=== PATIENT | female | born 1970 | race Caucasian/White ===

== ENCOUNTER 2016-09-30 14:10 | Emergency (ER) | payer OTHER ==
--- NOTE | 2016-09-30 14:32 | ED ---
General Adult HPI - General Chief complaint: Extremity Injury, Lower Stated complaint: L leg problem Time Seen by Provider: 09/30/16 14:20 Source: patient, RN notes reviewed Mode of arrival: ambulatory Limitations: no limitations - History of Present Illness Initial comments: 46-year-old female presented to the ER with low back pain radiating to the left leg and experiencing "giving out of her leg". She states that in her past medical history she has had some disc issues with her back as well as an issue with an epidural when she had her last years ago. She states that this pain and radiation to the left leg has been going on for about 3 days. Does cause her to occasionally fall. She states that none of her falls have been traumatic and her last fall was yesterday when she was in the kitchen cooking. She denies any trauma to her head, any dizziness, any vertigo, any vision change, headache, nausea or vomiting, hitting her head. States that her pain radiates across her low back into her left buttocks and down her left thigh. She denies occasional numbness to the thigh area as well. She states that she is not currently in any pain but does have occasional pain and tenderness in those stated areas. She stated that she did not need any pain medication in the ER today. She currently does not have health insurance and subsequently has not seen a primary care doctor recently. She states that approximately 6 years ago she did have some disc issues with her back and did go through physical therapy at that time and is in minimal issues since then. She denies any knee or ankle pain or issues. - Related Data Home Medications Medication Instructions Recorded Confirmed Otc Allergy Medication 24hr 1 tab PO DAILY 09/30/16 09/30/16 Previous Rx's Medication Instructions Recorded Ibuprofen [Motrin] 800 mg PO Q8HR PRN #30 tab 09/30/16 methylPREDNISolone Dose Pack 4 mg PO DIRECTED #21 package 09/30/16 [Medrol Dose Pack] Allergies Allergy/AdvReac Type Severity Reaction Status Date / Time sumatriptan [From Imitrex] Allergy Anaphylaxis Verified 09/30/16 14:43 sumatriptan succinate Allergy Anaphylaxis Verified 09/30/16 14:43 [From Imitrex] aspirin AdvReac Nausea Verified 09/30/16 14:43 Review of Systems ROS Statement: Those systems with pertinent positive or pertinent negative responses have been documented in the HPI. ROS Other: All systems not noted in ROS Statement are negative. Past Medical History Additional Past Medical History / Comment(s): migraines History of Any Multi-Drug Resistant Organisms: None Reported Past Surgical History: Section Additional Past Surgical History / Comment(s): right elbow Past Psychological History: No Psychological Hx Reported Smoking Status: Current every day smoker Past Alcohol Use History: None Reported Past Drug Use History: None Reported General Exam Limitations: no limitations General appearance: alert, in no apparent distress, other Head exam: Present: atraumatic, normocephalic Eye exam: Present: normal appearance, PERRL, EOMI Pupils: Present: normal accommodation Neck exam: Present: normal inspection, full ROM Respiratory exam: Present: normal lung sounds bilaterally Cardiovascular Exam: Present: regular rate, normal rhythm GI/Abdominal exam: Present: other (Obese) Extremities exam: Present: normal inspection, full ROM Back exam: Present: normal inspection, full ROM, paraspinal tenderness (Mild in lumbar area and over bilateral SI joints.), vertebral tenderness (Mild over lumbar area.), other (Patient had discomfort with Spencer's test and was straight leg raise. Neuromuscular function intact bilaterally extremities as well as motor strength.) Neurological exam: Present: alert, oriented X3, CN II-XII intact, other (Normal gait with slight apprehension) Psychiatric exam: Present: normal affect, normal mood Skin exam: Present: warm, dry, intact Course Vital Signs 09/30/16 15:32 Pulse Rate 61 Respiratory 18 Rate Blood Pressure 131/62 Medical Decision Making - Medical Decision Making 46-year-old female presented to the ER with low back pain radiating to the left leg and having her leg give out worsening over the past 3 days. She did have an extensive history that lead me to believe she may have some degenerative changes in the lumbar spine. An x-ray was ordered to evaluate this and when the x-ray was interpreted it did show moderate degenerative disc disease, facet arthropathy, diminished disc space. With the patient's symptoms and x-ray findings it does appear that she does have some lumbar radiculopathy. She did not have any red flag warning signs loss of bladder or bowel control at this time. To help control her current symptoms was given steroid in the ER as well as oral steroid to continue for the next. She was also given Motrin to help deal with the inflammatory processes well. Patient is to establish with a primary care this week to help continue with care for this diagnosis. She will probably need physical therapy and may need further imaging and this was discussed with the patient and her . Patient was agreeable with the treatment plan and voiced understanding. Patient's return to the ER if any worsening symptoms or concerns. - Radiology Data Radiology results: report reviewed (Report showed degenerative disc disease in the lumbar spine as well as facet arthropathy.), image reviewed (Degenerative disc disease with diminished disc space. No acute fracture or subluxation.) Disposition Clinical Impression: Lumbar back pain with radiculopathy affecting left lower extremity, Facet arthropathy, lumbar, DDD (degenerative disc disease), lumbar Disposition: HOME SELF-CARE Condition: Good Instructions: Lumbar Radiculopathy (ED) Additional Instructions: To return to the ER with any worsening symptoms or concerns. To establish with primary care physician to further treatment of today's diagnosis. Prescriptions: Ibuprofen [Motrin] 800 mg PO Q8HR PRN #30 tab PRN Reason: Pain methylPREDNISolone Dose Pack [Medrol Dose Pack] 4 mg PO DIRECTED #21 package Referrals: Bautista Currie MD [STAFF PHYSICIAN] - 1-2 days Time of Disposition: 15:29
[2016-09-30] MEDS ORDERED: methylPREDNISolone SOD SUCCI 125 MG/2 ML VIAL IM ONE (14:33)
--- NOTE | 2016-09-30 15:08 | XR ---
Lumbar spine HISTORY: Left leg giving out, pain 3 views of the lumbar spine No comparisons Bone mineralization, vertebral body height and alignment are maintained. There is loss of disc height L5-S1, with minimal retrolisthesis L5-S1. Loss of disc height L1-2, L2-3. Sclerosis present in the p osterior elements. IMPRESSION: Degenerative disc disease and facet arthropathy.
[2016-09-30] MEDS ORDERED: IBUPROFEN 600 MG STARTER PACK 4 TAB BTL PO STA (15:24)
[2016-09-30 15:35] VITALS: BP 131/62; PULSE 61; RESP 18
== END 2016-09-30 15:35 | disposition home or self-care (01) ==
LOC: EC 14:10
DX: M51.16 Intervertebral disc disorders with radiculopathy, lumbar region (principal); M12.9 Arthropathy, unspecified; F17.200 Nicotine dependence, unspecified, uncomplicated; Z88.6 Allergy status to analgesic agent; Z88.8 Allergy status to other drugs, medicaments and biological substances
CPT/HCPCS: 72100; 99283; 96372; J2930

== ENCOUNTER 2017-10-29 20:40 | Emergency (ER) | payer BC, OTHER ==
[2017-10-29 20:54] VITALS: RESP 18
[2017-10-29] MEDS ORDERED: SODIUM CHLORIDE 0.9% 1,000 ML IV STA (21:47)
[2017-10-29] MEDS ORDERED: ONDANSETRON 4 MG/2 ML VIAL IVP STA (21:47)
--- NOTE | 2017-10-29 21:51 | ED ---
Dizziness HPI - General Chief Complaint: Dizziness Stated Complaint: Weak/Dizzy Time Seen by Provider: 10/29/17 21:35 Source: patient Mode of arrival: ambulatory Limitations: no limitations - History of Present Illness Initial Comments: 7 years old female has a history of lung cancer, she is a status post lobectomy she status post chemo as well been feeling extremely tired for last few days also as a chronic chest wall pain since he has thoracic surgery. She denies any fever no chills she has dizzy lightheaded and tired for last few days the symptoms been going on for 3 days denies any pleuritic chest pain no abdominal pain no frequency urgency dysuria no symptoms of TIA or CVA - Related Data Home Medications Medication Instructions Recorded Confirmed ALPRAZolam [Xanax] 0.5 mg PO DAILY PRN 10/29/17 10/29/17 Calcium/Magnesium/Zinc 1 tab PO DAILY 10/29/17 10/29/17 [Zpjktia-Carppmirn-Ibzf Tablet] Cyclobenzaprine [Flexeril] 5 mg PO HS 10/29/17 10/29/17 Loratadine [Claritin] 10 mg PO DAILY 10/29/17 10/29/17 Coburn-3 Fatty Acids [Coburn-3] 1,000 mg PO DAILY 10/29/17 10/29/17 Previous Rx's Medication Instructions Recorded Meclizine [Antivert] 25 mg PO TID #10 tab 10/30/17 Allergies Allergy/AdvReac Type Severity Reaction Status Date / Time sumatriptan [From Imitrex] Allergy Anaphylaxis Verified 10/29/17 21:31 sumatriptan succinate Allergy Anaphylaxis Verified 10/29/17 21:31 [From Imitrex] aspirin AdvReac Nausea Verified 10/29/17 21:31 Review of Systems ROS Statement: Those systems with pertinent positive or pertinent negative responses have been documented in the HPI. ROS Other: All systems not noted in ROS Statement are negative. Past Medical History Past Medical History: Cancer Additional Past Medical History / Comment(s): migraines, lung ca History of Any Multi-Drug Resistant Organisms: None Reported Past Surgical History: Section Additional Past Surgical History / Comment(s): right elbow, lobectomy upper left lung Past Psychological History: Anxiety Smoking Status: Former smoker Past Alcohol Use History: None Reported Past Drug Use History: None Reported General Exam - General Exam Comments Initial Comments: General: The patient is awake and alert, in no distress, and does not appear acutely ill. Skin: Skin is warm and dry and no rashes or lesions are noted. Eye: Pupils are equal, round and reactive to light, extra-ocular movements are intact; there is normal conjunctiva bilaterally. Ears, nose, mouth and throat: There are moist mucous membranes and no oral lesions. Neck: The neck is supple, there is no tenderness or JVD. Cardiovascular: There is a regular rate and rhythm. No murmur, rub or gallop is appreciated. Respiratory: To auscultation bilateral, no wheezing no rhonchi no distress respiratory wright noticed Gastrointestinal: Soft, non-distended, non-tender abdomen without masses or organomegaly noted. There is no rebound or guarding present. Bowel sounds normal , noticed a large scar on the left lateral chest wall and abdomen Back: There is no tenderness to palpation in the midline. There is no obvious deformity. Musculoskeletal: Normal ROM, no tenderness, There is no pedal edema. There is no calf tenderness or swelling. No cords were appreciated. Neurological: CN II-XII intact, Cranial nerves III through XII are intact. There are no obvious motor or sensory deficits. Coordination appears grossly intact. Speech is normal. Psychiatric: Cooperative, appropriate mood & affect, normal judgment. Limitations: no limitations Course Vital Signs 10/29/17 10/29/17 10/29/17 20:49 23:51 23:53 Temperature 97.4 F L Pulse Rate 85 94 Respiratory 18 18 Rate Blood Pressure 133/91 131/64 Blood Pressure 111/57 [Left Arm Sitting] Blood Pressure 136/63 [Left Arm Standing] Blood Pressure 101/58 [Left Arm Supine] O2 Sat by Pulse 100 99 Oximetry She is reassessed at 2330, CBC, comp his metabolic panel, chest x-ray are unremarkable there is no neuro deficits that plan to do a urinalysis and orthostatics she did get some fluids though she does have a chest pain which is ongoing since her thoracic surgery she said it hasn't changed and intensity and she has no history of heart disease.. Term I have the urinalysis and orthostatic report patient is reassessed again at midnight, considering her lung cancer and I wanted to do a head CT to make sure there is no metastatic disease causing the dizziness she stated she wanted to hold off the head CT for now. I advised her to bring it to the Dr. Durand's attention if she continued to have dizziness so brain imaging could be done. She agreed to that she will be discharged home to follow with her family doctor or return to ER if symptoms get worse EKG Findings - EKG Comments: EKG Findings:: EKG is a normal sinus ventricular rate is 82 SD interval is 140 QRS duration is 78 QT/QTc is 392/457 review of this EKG does not reveal any STEMI or significant ST depression Medical Decision Making - Lab Data Result diagrams: 10/29/17 22:43 10/29/17 22:43 Lab Results 10/29/17 10/29/17 10/29/17 Range/Units 22:43 22:43 22:43 WBC 7.5 (3.8-10.6) k/uL RBC 3.80 (3.80-5.40) m/uL Hgb 13.6 (11.4-16.0) gm/dL Hct 39.4 (34.0-46.0) % MCV 103.7 H (80.0-100.0) fL MCH 35.8 H (25.0-35.0) pg MCHC 34.5 (31.0-37.0) g/dL RDW 13.0 (11.5-15.5) % Plt Count 299 (150-450) k/uL Neutrophils % (Manual) 61 % Band Neutrophils % 1 % Lymphocytes % (Manual) 38 % Neutrophils # (Manual) 4.60 (1.3-7.7) k/uL Lymphocytes # (Manual) 2.85 (1.0-4.8) k/uL Nucleated RBCs 0 (0-0) /100 WBC Manual Slide Review Performed Large Platelets Present Polychromasia Present Poikilocytosis (manual Present Macrocytosis Slight Sodium 143 (137-145) mmol/L Potassium 3.8 (3.5-5.1) mmol/L Chloride 106 (98-107) mmol/L Carbon Dioxide 21 L (22-30) mmol/L Anion Gap 16 mmol/L BUN 11 (7-17) mg/dL Creatinine 0.40 L (0.52-1.04) mg/dL Est GFR (CKD-EPI)AfAm >90 (>60 ml/min/1.73 sqM) Est GFR (CKD-EPI)NonAf >90 (>60 ml/min/1.73 sqM) Glucose 83 (74-99) mg/dL Calcium 9.4 (8.4-10.2) mg/dL Total Bilirubin 0.3 (0.2-1.3) mg/dL AST 46 H (14-36) U/L ALT 73 H (9-52) U/L Alkaline Phosphatase 86 (38-126) U/L Troponin I <0.012 (0.000-0.034) ng/mL Total Protein 7.5 (6.3-8.2) g/dL Albumin 4.2 (3.5-5.0) g/dL Urine Color Urine Appearance (Clear) Urine pH (5.0-8.0) Ur Specific [place] (1.001-1.035) Urine Protein (Negative) Urine Glucose (UA) (Negative) Urine Ketones (Negative) Urine Blood (Negative) Urine Nitrite (Negative) Urine Bilirubin (Negative) Urine Urobilinogen (<2.0) mg/dL Ur Leukocyte Esterase (Negative) Urine RBC (0-5) /hpf Urine WBC (0-5) /hpf Ur Squamous Epith Cells (0-4) /hpf Urine Bacteria (None) /hpf Urine Mucus (None) /hpf 10/30/17 Range/Units 00:04 WBC (3.8-10.6) k/uL RBC (3.80-5.40) m/uL Hgb (11.4-16.0) gm/dL Hct (34.0-46.0) % MCV (80.0-100.0) fL MCH (25.0-35.0) pg MCHC (31.0-37.0) g/dL RDW (11.5-15.5) % Plt Count (150-450) k/uL Neutrophils % (Manual) % Band Neutrophils % % Lymphocytes % (Manual) % Neutrophils # (Manual) (1.3-7.7) k/uL Lymphocytes # (Manual) (1.0-4.8) k/uL Nucleated RBCs (0-0) /100 WBC Manual Slide Review Large Platelets Polychromasia Poikilocytosis (manual Macrocytosis Sodium (137-145) mmol/L Potassium (3.5-5.1) mmol/L Chloride (98-107) mmol/L Carbon Dioxide (22-30) mmol/L Anion Gap mmol/L BUN (7-17) mg/dL Creatinine (0.52-1.04) mg/dL Est GFR (CKD-EPI)AfAm (>60 ml/min/1.73 sqM) Est GFR (CKD-EPI)NonAf (>60 ml/min/1.73 sqM) Glucose (74-99) mg/dL Calcium (8.4-10.2) mg/dL Total Bilirubin (0.2-1.3) mg/dL AST (14-36) U/L ALT (9-52) U/L Alkaline Phosphatase (38-126) U/L Troponin I (0.000-0.034) ng/mL Total Protein (6.3-8.2) g/dL Albumin (3.5-5.0) g/dL Urine Color Yellow Urine Appearance Cloudy H (Clear) Urine pH 5.5 (5.0-8.0) Ur Specific [place] 1.023 (1.001-1.035) Urine Protein Trace H (Negative) Urine Glucose (UA) Negative (Negative) Urine Ketones Negative (Negative) Urine Blood Negative (Negative) Urine Nitrite Negative (Negative) Urine Bilirubin Negative (Negative) Urine Urobilinogen <2.0 (<2.0) mg/dL Ur Leukocyte Esterase Negative (Negative) Urine RBC 2 (0-5) /hpf Urine WBC 3 (0-5) /hpf Ur Squamous Epith Cells 4 (0-4) /hpf Urine Bacteria Moderate H (None) /hpf Urine Mucus Many H (None) /hpf Disposition Clinical Impression: Dizziness, Chest wall pain Disposition: HOME SELF-CARE Condition: Good Instructions: Dizziness (ED) Prescriptions: Meclizine [Antivert] 25 mg PO TID #10 tab Is patient prescribed a controlled substance at d/c from ED?: No Referrals: Aiden Pepper MD [Primary Care Provider] - 1-2 days
[2017-10-29 22:51] LABS: HCT 39.4 % (34.0-46.0); HGB 13.6 gm/dL (11.4-16.0); MCH 35.8 pg (25.0-35.0); MCHC 34.5 g/dL (31.0-37.0); MCV 103.7 fL (80.0-100.0); Macrocytosis Slight; Mean Platelet Volume 6.7; Platelet Count 299 k/uL (150-450); WBC 7.5 k/uL (3.8-10.6)
[2017-10-29 23:00] LABS: ALT 73 U/L (9-52); AST 46 U/L (14-36); Albumin 4.2 g/dL (3.5-5.0); Alkaline Phosphatase 86 U/L (38-126); Anion Gap 16 mmol/L; Blood Urea Nitrogen 11 mg/dL (7-17); Calcium 9.4 mg/dL (8.4-10.2); Carbon Dioxide 21 mmol/L (22-30); Chloride 106 mmol/L (98-107); Glucose 83 mg/dL (74-99); Potassium 3.8 mmol/L (3.5-5.1); Sodium 143 mmol/L (137-145); Total Bilirubin 0.3 mg/dL (0.2-1.3); Total Protein 7.5 g/dL (6.3-8.2)
[2017-10-29 23:05] LABS: Band Neutrophils % 1 %; Lymphocytes # (M) 2.85 k/uL (1.0-4.8); Neutrophils % (M) 61 %; Nucleated Red Blood Cells 0 /100 WBC (0-0); Total Cells Counted 100
[2017-10-29 23:06] LABS: Large Platelets Present; Poikilocytosis (M) Present; Polychromasia Present
--- NOTE | 2017-10-29 23:10 | XR ---
EXAMINATION TYPE: XR chest 2V DATE OF EXAM: 10/29/2017 COMPARISON: NONE HISTORY: Dizziness TECHNIQUE: Frontal and lateral views of the chest are obtained. FINDINGS: There is no heart failure. There is coarsening of the lung markings in the left lower lobe . There is previous left thoracotomy. Thoracic aorta is atheromatous. I see no pleural effusion. Bony thorax is otherwise intact. IMPRESSION: Previous left thoracotomy. Mild pleural and pulmonary scarring in the left lower lobe. N ormal heart. No heart failure.
[2017-10-30 00:15] LABS: Appearance,Urine Cloudy (Clear); Bacteria,Urine Moderate /hpf; Bilirubin,Urine Negative (Negative); Blood,Urine Negative (Negative); Color,Urine Yellow; Glucose,Urine (UA) Negative (Negative); Ketones,Urine Negative (Negative); Leukocyte Esterase,Urine Negative (Negative); Mucus,Urine Many /hpf; Nitrite,Urine Negative (Negative); PH, Urine 5.5 (5.0-8.0); Protein,Urine Trace (Negative); RBC,Urine 2 /hpf (0-5); Specific Gravity,Urine 1.023 (1.001-1.035); Squamous Epithelial Cell,Urine 4 /hpf (0-4); Urobilinogen,Urine <2.0 mg/dL (<2.0); WBC,Urine 3 /hpf (0-5)
[2017-10-30 01:08] VITALS: BP 134/70; PULSE 79; TEMP 97.9
== END 2017-10-30 01:09 | disposition home or self-care (01) ==
LOC: EC 20:40
DX: R42 Dizziness and giddiness (principal); R07.89 Other chest pain; F41.9 Anxiety disorder, unspecified; Z85.118 Personal history of other malignant neoplasm of bronchus and lung; Z87.891 Personal history of nicotine dependence; Z79.899 Other long term (current) drug therapy; Z88.6 Allergy status to analgesic agent; Z88.8 Allergy status to other drugs, medicaments and biological substances; Z53.29 Procedure and treatment not carried out because of patient's decision for other reasons
CPT/HCPCS: 36415; 71046; 80053; 81001; 84484; 85025; 93005; 96360; 96361; 99284

== ENCOUNTER → 2019-04-10 | Outpatient (CLI) | payer BC, OTHER ==
[2019-04-10 13:12] VITALS: BP 116/83; PULSE 83; RESP 18; TEMP 98.1; BMI 41.7
--- NOTE | 2019-04-10 14:21 | P.GSHP ---
History of Present Illness H&P Date: 04/10/19 Chief Complaint: abnormal mammogram Tory is a 48 year white female seen in consultation for Dr. Pepper for an abnormal mammogram. Tory is a 48 year old white female who at a routine screening mammogram of both breasts performed in January 2019. Following this additional radiographs were ordered and calcifications were noted in both breasts for which stero-core biopsy were recommended of the right breast, and after review with Dr. Brumfield we will also recommend stero biopsy of the left breast. The patient herself does not feel anything of concern in either breast. She has no history of any masses lumps nodules in either breast recently. No history of any nipple discharge no pain in the breast. No recent trauma or infection of the breast. She has undergone a left breast biopsy in the past which was benign. The patient had a diagnosis of lung cancer at 46. She had chemotherapy and surgery. She did not have radiation. At this timme she is cancer free. She follows with Dr. Durand. She drinks a pot of coffee/day, and pop at work. She stopped smoking 2 1/2 years ago. She is not exposed to second hand smoke. She eats chocolate once a month. She has bilateral breast swelling just prior to beginning of her menses. She does not take hormones, control pills, or sore products on a regular basis. Family history: mother: ovarain cancer maternal aunt: female cancer ? type sister: ovarian cancer in her 30's pateint: lung cancer 2017, left upper lung removed non-small cell cancer Hormonl History: menarche: 13 [id number] twins, breast fed: yes, first born at 216 last period 2 months ago BCP: none hormones: none Past surgical history: 1. Lung resection 2. 2 C-sections 3. Right elbow surgery Medical History: 1. obsessive/compulsive disorder, posttraumatic stress disorder 2. Migraine headaches 3. Anxiety 4. arthritis in hands Social History: smoke: stopped 2 1/2 years ago alcohol: none drugs: none - Constitutional Constitutional: Denies chills, Denies fever - EENT Comment: wears glasses, near sighted worse after chemotherapy Eyes: bilateral decreased vision Ears: bilateral: tinnitus Ears, nose, mouth and throat: Denies headache, Denies sore throat - Breasts Breasts: bilateral: as per HPI - Cardiovascular Cardiovascular: Denies chest pain, Denies shortness of breath - Respiratory Comment: left lung cancer status post resection upper lobe resected - Gastrointestinal Gastrointestinal: Denies abdominal pain, Denies diarrhea, Denies nausea, Denies vomiting - Genitourinary (Female) Genitourinary: Denies dysuria, Denies hematuria - Menstruation Menstruation: Reports menses variable - Musculoskeletal Comment: arthritis Musculoskeletal: Denies myalgias - Integumentary Integumentary: Reports pruritus, Denies rash - Neurological Neurological: Denies numbness, Denies weakness - Psychiatric Psychiatric: Reports anxiety - Endocrine Endocrine: Reports weight change - Hematologic/Lymphatic Comment: none - Allergic/Immunologic Allergic/Immunologic: Reports seasonal allergies Past Medical History Past Medical History: Cancer Additional Past Medical History / Comment(s): migraines, lung ca History of Any Multi-Drug Resistant Organisms: None Reported Past Surgical History: Section Additional Past Surgical History / Comment(s): right elbow, lobectomy upper left lung, LEFT BREAST BX IN THE PAST Past Psychological History: Anxiety, PTSD Smoking Status: Former smoker Past Alcohol Use History: None Reported Past Drug Use History: None Reported Medications and Allergies Home Medications Medication Instructions Recorded Confirmed Type ALPRAZolam [Xanax] 0.5 mg PO DAILY PRN 10/29/17 04/10/19 History Cyclobenzaprine [Flexeril] 5 mg PO HS PRN 10/29/17 04/10/19 History Loratadine [Claritin] 10 mg PO DAILY 10/29/17 04/10/19 History Multivitamin,Therapeutic [Thera] 1 each PO DAILY 04/06/19 04/10/19 History Oxygen 04/10/19 History Allergies Allergy/AdvReac Type Severity Reaction Status Date / Time mushroom Allergy Anaphylaxis Unverified 04/10/19 13:13 sumatriptan [From Imitrex] Allergy Anaphylaxis Verified 04/10/19 13:12 sumatriptan succinate Allergy Anaphylaxis Verified 04/10/19 13:12 [From Imitrex] aspirin AdvReac Nausea Verified 04/10/19 13:12 Surgical - Exam Vital Signs Temp Pulse Resp BP Pulse Ox 98.1 F 83 18 116/83 95 04/10/19 13:09 04/10/19 13:09 04/10/19 13:09 04/10/19 13:09 04/10/19 13:09 BMI 41.7 - General obese - Eyes normal ocular movement - ENT normal pinna, normal nares, no hearing loss - Neck no masses, trachea midline, no lymphadectomy - Respiratory well healed scar left chest related to lung resection normal expansion, normal respiratory effort, clear to auscultation - Cardiovascular Rhythm: regular Heart Sounds: normal: S1, S2 - Abdomen normal bowel sounds Abdomen: soft, non tender, no guarding, no rigid, no rebound - Integumentary well healed scar left chest tatoo lower back - Neurologic no disoriented, no combative - Musculoskeletal normal gait - Psychiatric oriented to time, oriented to person, oriented to place, speech is normal, memory intact Breast examination: Right breast: Multi-positional exam no dominant masses or nodules of concern Right axilla: No adenopathy of concern Left breast: Multi-positional exam no dominant masses or nodules of concern Left axilla: No adenopathy of concern Under both breasts there is fungal infection noted Results mammograms reviewed with radiology DR. Brumfield Assessment and Plan Assessment: Impression: 1. Bilateral mammographic abnormalities microcalcifications 2. Fibrocystic breast changes 3. Fungal infection underneath both breasts 4. Status post left upper lobe lung resection for malignancy at this time disease-free 5. Obsessive-compulsive disorder/posttraumatic stress disorder 6. BMI 41.7 7. arthritis Plan: 1. Bilateral stereotactic core biopsies 2. Nystatin to fungal area under breast bilateral 3. Patient may have xanax prior to stereotactic core biopsy 4. Medical management of medical conditions Time spent 40 minutes, > 50% planning and explaining procedure
== END ==
LOC: WWCWWP 12:50
PROVIDERS: ATTEND Surgery
DX: Z53.9 Procedure and treatment not carried out, unspecified reason (principal)

== ENCOUNTER → 2019-04-17 | Day surgery (SDC) | payer BC, OTHER ==
[2019-04-17 07:31] VITALS: RESP 16; TEMP 97.8; BMI 42.4
[2019-04-17 10:29] VITALS: BP 133/80; PULSE 75
--- NOTE | 2019-04-17 12:59 | P.PCN ---
Date of Procedure: 04/17/19 Preoperative Diagnosis: Microcalcifications of of concern right breast, microcalcifications also noted left breast Postoperative Diagnosis: same Procedure(s) Performed: Bilateral sterio-tactic core biopsy Anesthesia: local Surgeon: Lin Barney Estimated Blood Loss (ml): 1 Pathology: other (bilateral bresat tissue, bilateral specimens with microc alcifications) Condition: stable Disposition: same day Indications for Procedure: Right breast heterogeneous calcifications of concern, left breast microcalcifications most likely benign but in view of the right breast findings biopsy felt warranted Operative Findings: Breast tissue with microcalcifications bilaterally Description of Procedure: The patient is a 48-year-old white female who on a mammogram was noted to have microcalcifications of concern in the right breast. Microcalcifications in the left breast which were felt to be not as worrisome but warrant interventional biopsy. Risks and benefits of stero tactic core biopsy were discussed with the patient and she wished to proceed. The patient was taken to the stereotactic core biopsy room and positioned on the Lo Rad table. CC from above approach was utilized. [place] Layer film was obtained of the right breast and the area of calcifications of concern were identified. We were initially going to sample 2 areas as this was sent to [facility]. Targeting was performed on 2 of the areas. The breast was prepped using Betadine. 10 mL of 1% lidocaine plain were used to anesthetize the skin and breast tissue. A second syringe of 10 mL of 1% lidocaine with epinephrine was injected into the area as we proceeded. Needle was driven to the correct coordinates. Post-fire radiographs confirm that the needle was in the correct location. 9 core biopsies were obtained. This was done using a 9-gauge vacuum-assisted core rotating biopsy needle. Radiograph of the specimen revealed microcalcifications of concern about obtained. A Top-Hat stereotactic secure [place] marker was placed. It was felt through the entire area of microcalcifications were similar and therefore after review with radiology additional biopsy of that group was not performed. The left breast was then approached. The patient was positioned on the stereotactic lo-rad table. CC from above approach was utilized. A leather drier film was obtained and the area of concern was identified. The lesion was targeted. The breast was prepped using Betadine. Approximately 20 mL of 1% lidocaine 10 of which had epinephrine were used to anesthetize the area. The needle was driven into the coordinates. Post fire x-rays request confirmed that the needle was in the correct location. 8 core biopsies were obtained. A 9-gauge vacuum- assisted core rotating biopsy needle was utilized. The specimen revealed microcalcifications. A secure [place] Top-racing board marker was placed. The patient tolerated the procedure in stable condition. Specimens were sent for pathology. The patient will follow-up Dr. Dixon next week.
--- NOTE | 2019-04-17 14:05 | MM ---
Stereotactic core biopsy left breast. HISTORY: Microcalcifications. The calcifications in question within the left breast were targeted by the undersigned. The examination was performed by the surgeon. Specimen radiograph demonstrates numerous calcifications within the specimen submitted. Post procedural mammogram demonstrates appropriate deployment of radiopaque clip marker. The patient tolerated the procedure well and left the department in stable condition. Pathology results are pending. IMPRESSION: Successful stereotactic core biopsy left breast with pathology results pending. Pathology Results: Benign A. RIGHT BREAST POSTERIOR, STEREOTACTIC CORE BIOPSY: Fibrocystic changes including sclerosing adenosis with calcifications, fibrosis and cysts. B. LEFT BREAST POSTERIOR, STEREOTACTIC CORE BIOPSY: Fibrocystic changes including sclerosing adenosis with calcifications, fibrosis and cysts. Recommendation Follow up mammogram of both breasts in 6 months. ALEJANDRO
--- NOTE | 2019-04-20 13:49 | MM ---
Stereotactic core biopsy right breast. HISTORY: Microcalcifications. The calcifications in question within the right breast were targeted by the undersigned. The examination was performed by the surgeon. Specimen radiograph demonstrates numerous calcifications within the specimen submitted. Post procedural mammogram demonstrates appropriate deployment of radiopaque clip marker. The patient tolerated the procedure well and left the department in stable condition. Pathology results are pending. IMPRESSION: Successful stereotactic core biopsy right breast with pathology results pending. Pathology Results: Benign A. RIGHT BREAST POSTERIOR, STEREOTACTIC CORE BIOPSY: Fibrocystic changes including sclerosing adenosis with calcifications, fibrosis and cysts. B. LEFT BREAST POSTERIOR, STEREOTACTIC CORE BIOPSY: Fibrocystic changes including sclerosing adenosis with calcifications, fibrosis and cysts. Recommendation Follow up mammogram of both breasts in 6 months. ALEJANDRO
== END ==
LOC: RADMAMWWP 07:02
PROVIDERS: ATTEND Surgery
DX: N60.12 Diffuse cystic mastopathy of left breast (principal); N60.11 Diffuse cystic mastopathy of right breast; N60.22 Fibroadenosis of left breast; N60.21 Fibroadenosis of right breast
CPT/HCPCS: 88305; 19081; 19082; A4648; J2001

== ENCOUNTER → 2019-04-30 | Outpatient (CLI) | payer BC, OTHER ==
[2019-04-30 15:55] VITALS: BP 109/73; PULSE 65; RESP 18; TEMP 98.2
--- NOTE | 2019-04-30 16:05 | P.PN ---
Subjective Progress Note Date: 04/30/19 Principal diagnosis: Patient status post bilateral stereotactic core biopsy Tory is a 48 year old white female status post bilateral stero core biopsies. The procedure was done on 1120 . Postprocedure the patient has only complains of mild discomfort in the right breast or some ecchymosis. The pathology and both breasts showed fibrocystic changes including sclerosing adenosis with calcifications, fibrosis and cyst. Objective - Vital Signs Vital signs: Vital Signs Temp 98.2 F 04/30/19 15:52 Pulse 65 04/30/19 15:52 Resp 18 04/30/19 15:52 BP 109/73 04/30/19 15:52 Pulse Ox 96 04/30/19 15:52 Intake & Output 04/29/19 04/30/19 04/30/19 18:59 06:59 18:59 Weight 77.111 kg - Exam BMI 41 - Constitutional General appearance: Present: obese - EENT Eyes: Present: EOMI ENT: Present: hearing grossly normal - Neck Neck: Present: normal ROM - Respiratory Respiratory: bilateral: CTA - Cardiovascular Rhythm: regular Heart sounds: normal: S1, S2 - Integumentary Integumentary: Present: normal turgor - Musculoskeletal Musculoskeletal: Present: gait normal - Psychiatric Psychiatric: Present: A&O x's 3, appropriate affect, intact judgment & insight - Additional findings Additional findings: Breast examination: Right breast mild ecchymosis related to core biopsy no hematoma of concern Left breast no evidence of infection or hematoma at biopsy site Assessment and Plan Assessment: Impression: 1. Bilateral stereotactic core biopsies benign fibrocystic breast changes bilaterally felt to be concordant Plan: 1. Bilateral mammogram in 6 months with physician exam at that time Time about 15 minutes, > 50% counseling CC: Dr. Pepper
== END ==
LOC: WWCWWP 15:34
PROVIDERS: ATTEND Surgery
DX: Z53.9 Procedure and treatment not carried out, unspecified reason (principal)

== ENCOUNTER → 2020-04-04 | Outpatient (CLI) | payer BC, OTHER ==
--- NOTE | 2020-04-04 16:22 | MR ---
EXAMINATION TYPE: MR brain wo/w con DATE OF EXAM: 04/04/2020 COMPARISON: NONE HISTORY: Lung Ca, evaluate for mets TECHNIQUE: Multiplanar, multisequence images of the brain and brainstem is performed without and with IV contras t, utilizing 7.5 mL intravenous Gadavist . FINDINGS: Diffusion weighted images demonstrate no evidence of a recent infarct or other diffusion ab normality. There is no extra-axial fluid collection or significant white matter signal abnormality. The ventricular system and cisternal spaces are normal in size and appearance. The brain volume is age appropriate. Midline structures demonstrate empty sella morphology. The craniocervical junction appears within no rmal limits. No Chiari malformation. Post contrast images demonstrate no abnormal enhancement. The d ural venous sinuses appear patent. Elongation of the globes with prominent CSF surrounding the optic nerves bilaterally. Roughly 1.5 cm mucous retention cyst or polyp in the inferior right maxillary sin us. Paranasal sinuses are otherwise grossly clear. Some patchy fluid left mastoid air cells inferiorl y axial image 5. IMPRESSION: 1. No suspicious enhancing masses or enhancement to suggest metastatic disease to the brain. 2. Correlate to exclude intracranial hypertension as detailed above. 3. Possible mild left-sided acute mastoiditis, correlate clinically.
== END | disposition home or self-care (01) ==
LOC: RADMRIMAIN 14:54
PROVIDERS: ATTEND Internal Medicine Hematology & Oncology
DX: C34.12 Malignant neoplasm of upper lobe, left bronchus or lung (principal)
CPT/HCPCS: 70553; A9585

== ENCOUNTER → 2020-08-11 | Outpatient (CLI) | payer BC, OTHER ==
--- NOTE | 2020-08-11 13:00 | ECHOF ---
Referral Reason:Z01.818 exposure to chemo MEASUREMENTS -------- HEIGHT: 132.1 cm WEIGHT: 79.4 kg BP: RVIDd: 2.6 cm (< 3.3) IVSd: 1.0 cm (0.6 - 1.1) LVIDd: 4.0 cm (3.9 - 5.3) LVPWd: 1.3 cm (0.6 - 1.1) IVSs: 1.3 cm LVIDs: 2.8 cm LVPWs: 1.6 cm LA Diam: 2.8 cm (2.7 - 3.8) Ao Diam: 2.6 cm (2.0 - 3.7) AV Cusp: 1.9 cm (1.5 - 2.6) MV EXCURSION: 16.919 mm (> 18.000) MV EF SLOPE: 50 mm/s (70 - 150) EPSS: 1.2 cm MV E Watson: 0.44 m/s MV DecT: 231 ms MV A Watson: 0.75 m/s MV E/A Ratio: 0.59 RAP: 5.00 mmHg RVSP: 16.81 mmHg FINDINGS -------- Sinus rhythm. Pt going thru radiation and chemo. LV size, wall thickness and systolic function are normal, with an EF greater than 55%. The left clark tricular size is normal. The right ventricle is normal in size. The left atrial size is normal. The right atrial size is normal. CONCLUSIONS -------- 1. Pt going thru radiation and chemo. 2. LV size, wall thickness and systolic function are normal, with an EF greater than 55%. 3. The left ventricular size is normal. 4. The right ventricle is normal in size. 5. The left atrial size is normal. 6. The right atrial size is normal. [employer] PAPER: Shelia Dougherty RDCS
== END ==
LOC: RADECHMAIN 10:36
PROVIDERS: ATTEND Internal Medicine Hematology & Oncology
DX: Z01.818 Encounter for other preprocedural examination (principal)
CPT/HCPCS: 93306

== ENCOUNTER 2020-11-23 18:49 | Emergency (ER) | payer BC, OTHER ==
[2020-11-23 19:19] VITALS: BP 135/84; PULSE 80; RESP 20; TEMP 97.9
[2020-11-23] MEDS ORDERED: KETOROLAC 15 MG/ML 1 ML VIAL IM STA (20:34)
[2020-11-23] MEDS ORDERED: HYDROmorphone 1 MG/ML 1 ML SYRINGE IM STA (20:34)
--- NOTE | 2020-11-23 21:48 | CT ---
EXAMINATION TYPE: CT lumbar spine wo con DATE OF EXAM: 11/23/2020 9:06 PM COMPARISON: None available. HISTORY: low back pain CT DLP: 1258.4 mGycm Automated exposure control for dose reduction was used. Technique: Unenhanced CT of the lumbar spine was performed. Bone and soft tissue window settings are submitted as well as coronal and sagittal reconstructions. Findings: There is no acute fracture of the lumbar spine. There is moderate to severe disc narrowing at L5-S1 w ith mild grade 1 retrolisthesis. There is mild facet arthropathy in the lower lumbar spine. IMPRESSION: L5-S1 degenerative changes with grade 1 retrolisthesis. No acute osseous abnormality.
--- NOTE | 2020-11-23 21:59 | ED ---
Back Pain HPI - General Chief Complaint: Back Pain/Injury Stated Complaint: back pain Time Seen by Provider: 11/23/20 20:07 Source: patient Limitations: no limitations - History of Present Illness Initial Comments: 50-year-old female patient with lung cancer presents to the emergency department today for evaluation of low back pain. Patient states she does have a history of degenerative disc disease and has had similar type pain in the past. States this current episode apparently has been going on for the last 3 weeks. States the pain is across her lower back and does radiate somewhat into her right leg. Denies numbness or tingling to the lower extremities. Denies saddle anesthesia or loss of bowel or bladder control. Patient states she has been taking Advil without relief. Denies fever or chills. Patient denies any recent rash, fever, chills, cough, shortness of breath, chest pain, abdominal pain, nausea, vomiting, diarrhea, constipation, back pain, numbness, tingling, dizziness, weakness, hematuria, dysuria, urinary urgency, urinary frequency, headache, visual changes, or any other complaints. - Related Data Home Medications Medication Instructions Recorded Confirmed ALPRAZolam [Xanax] 0.5 mg PO DAILY PRN 10/29/17 04/30/19 Cyclobenzaprine [Flexeril] 5 mg PO HS PRN 10/29/17 04/30/19 Loratadine [Claritin] 10 mg PO DAILY 10/29/17 04/30/19 Multivitamin,Therapeutic [Thera] 1 each PO DAILY 04/06/19 04/30/19 Oxygen 1.5 / NASAL HS 04/10/19 04/30/19 Previous Rx's Medication Instructions Recorded HYDROcodone/APAP 5-325MG [[place] 5] 1 each PO Q6HR PRN #12 tab 11/23/20 Allergies Allergy/AdvReac Type Severity Reaction Status Date / Time mushroom Allergy Anaphylaxis Verified 11/23/20 19:19 sumatriptan [From Imitrex] Allergy Anaphylaxis Verified 11/23/20 19:19 sumatriptan succinate Allergy Anaphylaxis Verified 11/23/20 19:19 [From Imitrex] aspirin AdvReac Nausea Verified 11/23/20 19:19 Review of Systems ROS Statement: Those systems with pertinent positive or pertinent negative responses have been documented in the HPI. ROS Other: All systems not noted in ROS Statement are negative. Past Medical History Past Medical History: Cancer Additional Past Medical History / Comment(s): migraines, lung ca 2017, PTSD, OCD, anxiety History of Any Multi-Drug Resistant Organisms: None Reported Past Surgical History: Section Additional Past Surgical History / Comment(s): right elbow, lobectomy upper left lung, LEFT BREAST BX IN THE PAST Past Anesthesia/Blood Transfusion Reactions: Previous Problems w/ Anesthesia Additional Past Anesthesia/Blood Transfusion Reaction / Comment(s): PT STATES SHE HAS WOKEN UP DURING PROCEDURES IN THE PAST Past Psychological History: Anxiety, PTSD Smoking Status: Former smoker Past Alcohol Use History: None Reported Past Drug Use History: None Reported General Exam Limitations: no limitations General appearance: alert, in no apparent distress, other (Social well- developed, well-nourished adult female patient in no acute distress. Vital signs upon presentation temperature 97.9F, pulse 80, respirations 20, blood pressure 135/84, pulse ox 96% on room air.) ENT exam: Present: normal exam, normal oropharynx, mucous membranes moist Respiratory exam: Present: normal lung sounds bilaterally. Absent: respiratory distress, wheezes, rales, rhonchi, stridor Cardiovascular Exam: Present: regular rate, normal rhythm, normal heart sounds. Absent: systolic murmur, diastolic murmur, rubs, gallop, clicks GI/Abdominal exam: Present: soft, normal bowel sounds. Absent: distended, tenderness, guarding, rebound, rigid Extremities exam: Present: full ROM, normal capillary refill, other (Skin to the lower trauma is is pink, warm, dry. Cap refill less than 3 seconds. Pedal and posttibial pulses are 2+ and equal bilaterally.). Absent: tenderness, pedal edema, joint swelling, calf tenderness Back exam: Present: normal inspection. Absent: vertebral tenderness Neurological exam: Present: alert, oriented X3, CN II-XII intact Psychiatric exam: Present: normal affect, normal mood Skin exam: Present: warm, dry, intact, normal color. Absent: rash Course Vital Signs 11/23/20 19:16 Temperature 97.9 F Pulse Rate 80 Respiratory 20 Rate Blood Pressure 135/84 O2 Sat by Pulse 96 Oximetry Medical Decision Making - Medical Decision Making 50-year-old female patient with history of lung cancer currently in treatment presents to the emergency department today for evaluation of increased low back pain over the last 3 weeks. Physical examination is unremarkable. She is neurovascularly and neurologically intact. No concerning symptoms or cauda equina. Given cancer diagnosis we did perform CT of the lumbar spine which was negative. She was given pain medication here. Upon reevaluation she does report improvement of symptoms. Should be discharged to follow up with a primary care physician for recheck in 1-2 days. Return parameters discussed in detail. Patient verbalizes understanding and agrees with this plan. My attending is Dr. Echols. - Radiology Data Radiology results: report reviewed, image reviewed CT shows L5 to S1 degenerative changes with grade 1 retrolisthesis. No acute osseous abnormality. Disposition Clinical Impression: Low back pain Disposition: HOME SELF-CARE Condition: Good Instructions (If sedation given, give patient instructions): Acute Low Back Pain (ED) Additional Instructions: Take medications as directed. Follow-up with primary care physician for recheck in 1-2 days. Return for any new, worsening, or concerning symptoms. Prescriptions: HYDROcodone/APAP 5-325MG [[place] 5] 1 each PO Q6HR PRN #12 tab PRN Reason: Pain Is patient prescribed a controlled substance at d/c from ED?: No Referrals: Beata Álvarez MD [Primary Care Provider] - 1-2 days Time of Disposition: 21:58
== END 2020-11-23 22:13 | disposition home or self-care (01) ==
LOC: EC 18:49
DX: M54.5 Low back pain (principal); F41.9 Anxiety disorder, unspecified; Z87.891 Personal history of nicotine dependence; Z85.118 Personal history of other malignant neoplasm of bronchus and lung
CPT/HCPCS: 72131; 99284; 96372 ×2; J1170; J1885

== ENCOUNTER → 2021-06-07 | Outpatient (CLI) | payer OTHER ==
--- NOTE | 2021-06-08 05:58 | MR ---
EXAMINATION TYPE: MR brain wo/w con DATE OF EXAM: 06/07/2021 COMPARISON: 04/04/2020 HISTORY: Dizziness, unsteady gait, hx lung ca. CONTRAST: Standard multiplanar, multisequence MRI departmental protocol images were obtained without contrast a nd with 7.5 mL intravenous Gadavist gadolinium contrast. Ventricles of normal size. There is no mass effect or midline shift. Diffusion images show no evidenc e of an acute infarct. The mai and white matter structures have fairly normal signal pattern. There is no evidence of cerebral edema. Corpus callosum appears normal. Optic chiasm appears normal. Brains tem appears intact. The contrast images show no pathologic enhancement. There is normal enhancement of the venous sinuses . There is no evidence of orbital mass. There is a large empty sella turcica. No evidence of a sellar mass. IMPRESSION: Negative MR scan of the brain. No evidence of metastatic disease. No adverse change compared to old e xam.
== END | disposition home or self-care (01) ==
LOC: RADMRIMAIN 16:41
PROVIDERS: ATTEND Internal Medicine Hematology & Oncology
DX: R42 Dizziness and giddiness (principal); R26.9 Unspecified abnormalities of gait and mobility; Z85.118 Personal history of other malignant neoplasm of bronchus and lung
CPT/HCPCS: 70553; A9585

== ENCOUNTER → 2022-02-02 | Outpatient (CLI) | payer OTHER ==
--- NOTE | 2022-02-02 12:28 | US ---
EXAMINATION TYPE: US venous doppler duplex UE RT DATE OF EXAM: 02/02/2022 COMPARISON: NONE CLINICAL HISTORY: Pain r arm M79.621. Right neck throbbing. Has port on right side. No redness or s welling. SIDE PERFORMED: Right Right Arm: Negative for DVT IMPRESSION: No evidence for DVT.
== END | disposition home or self-care (01) ==
LOC: RADUSWWP 11:21
PROVIDERS: ATTEND Internal Medicine Hematology & Oncology
DX: M79.621 Pain in right upper arm (principal); R22.31 Localized swelling, mass and lump, right upper limb

== ENCOUNTER 2022-09-15 23:18 | Emergency (ER) | payer MEDICARE, OTHER ==
[2022-09-15 23:23] VITALS: BP 126/81; PULSE 114; RESP 18
[2022-09-15 23:24] VITALS: TEMP 98.2
[2022-09-16 00:38] LABS: Basophils % (A) 1 %; Eosinophils # (A) 0.1 k/uL (0-0.7); Eosinophils % (A) 1 %; HCT 34.5 % (34.0-46.0); HGB 12.2 gm/dL (11.4-16.0); Lymphocytes # (A) 1.1 k/uL (1.0-4.8); Lymphocytes % (A) 14 %; MCH 37.5 pg (25.0-35.0); MCHC 35.4 g/dL (31.0-37.0); MCV 105.7 fL (80.0-100.0); Macrocytosis Slight; Mean Platelet Volume 7.3; Monocytes # (A) 0.4 k/uL (0-1.0); Monocytes % (A) 5 %; Neutrophils % (A) 76 %; Platelet Count 210 k/uL (150-450); RBC 3.26 m/uL (3.80-5.40); RDW 12.2 % (11.5-15.5); WBC 7.9 k/uL (3.8-10.6)
[2022-09-16 01:09] LABS: INR 1.3 (<1.2); Prothrombin Time 12.9 sec (9.0-12.0)
[2022-09-16] MEDS ORDERED: KETOROLAC 15 MG/ML 1 ML VIAL IVP STA (01:10)
[2022-09-16 01:13] LABS: Partial Thromboplastin Time >200.0 sec (22.0-30.0)
--- NOTE | 2022-09-16 01:18 | XR ---
EXAM: XR Chest, 2 Views CLINICAL HISTORY: ITS.REASON XR Reason: CP TECHNIQUE: Frontal and lateral views of the chest. COMPARISON: No relevant prior studies available. FINDINGS: Lungs: Volume loss of the left lung likely related to prior left upper lobectomy. Pleural space: Unremarkable. No pneumothorax. No pleural effusions. Heart: Unremarkable. No cardiomegaly. Mediastinum: Unremarkable. Bones/joints: No acute osseous abnormalities. Tubes, lines and devices: Right IJ chest Mediport catheter is in position. IMPRESSION: No acute cardiopulmonary disease.
--- NOTE | 2022-09-16 02:35 | ED ---
General Adult HPI - General Chief complaint: Chest Pain Stated complaint: Chest Pain, Pain in neck Time Seen by Provider: 09/15/22 23:26 Source: patient Mode of arrival: wheelchair Limitations: no limitations - History of Present Illness Initial comments: This is a 52-year-old female with a past medical history including recurrent lung cancer on chemotherapy presents emergency department for right anterior chest pain. The patient stated this chest pain is been present over the last 4 days and stated that is been persistent and severe so she came to the emergency department. The patient stated that the pain is over her port and up to her nec k and states that is worse with movement. The patient denied any shortness of breath or any palpitations. The patient denied any fevers or chills and stated that her last chemotherapy was one week ago. The patient was however resting in bed comfortably. - Related Data Home Medications Medication Instructions Recorded Confirmed ALPRAZolam [Xanax] 0.5 mg PO DAILY PRN 10/29/17 04/30/19 Cyclobenzaprine [Flexeril] 5 mg PO HS PRN 10/29/17 04/30/19 Loratadine [Claritin] 10 mg PO DAILY 10/29/17 04/30/19 Multivitamin,Therapeutic [Thera] 1 each PO DAILY 04/06/19 04/30/19 Oxygen 1.5 / NASAL HS 04/10/19 04/30/19 Previous Rx's Medication Instructions Recorded HYDROcodone/APAP 5-325MG [[place] 5] 1 each PO Q6HR PRN #12 tab 11/23/20 Allergies Allergy/AdvReac Type Severity Reaction Status Date / Time mushroom Allergy Anaphylaxis Verified 09/15/22 23:19 sumatriptan [From Imitrex] Allergy Anaphylaxis Verified 09/15/22 23:19 sumatriptan succinate Allergy Anaphylaxis Verified 09/15/22 23:19 [From Imitrex] aspirin AdvReac Nausea Verified 09/15/22 23:19 Review of Systems ROS Statement: Those systems with pertinent positive or pertinent negative responses have been documented in the HPI. ROS Other: All systems not noted in ROS Statement are negative. Past Medical History Past Medical History: Cancer Additional Past Medical History / Comment(s): migraines, lung ca PTSD, OCD, anxiety, History of Any Multi-Drug Resistant Organisms: None Reported Past Surgical History: Section Additional Past Surgical History / Comment(s): right elbow, lobectomy upper left lung, LEFT BREAST BX IN THE PAST Past Anesthesia/Blood Transfusion Reactions: Previous Problems w/ Anesthesia Additional Past Anesthesia/Blood Transfusion Reaction / Comment(s): PT STATES SHE HAS WOKEN UP DURING PROCEDURES IN THE PAST Past Psychological History: Anxiety, PTSD Smoking Status: Former smoker Past Alcohol Use History: None Reported Past Drug Use History: None Reported General Exam Limitations: no limitations General appearance: alert, in no apparent distress, obese Head exam: Present: atraumatic, normocephalic, normal inspection Eye exam: Present: normal appearance, PERRL Pupils: Present: normal accommodation ENT exam: Present: normal exam, normal oropharynx, mucous membranes moist Neck exam: Present: normal inspection, full ROM Respiratory exam: Present: normal lung sounds bilaterally, chest wall tenderness (Tenderness palpation noted over the right anterior chest, over the port and up to the right side of the neck along the course of the port) Cardiovascular Exam: Present: regular rate, normal rhythm, normal heart sounds GI/Abdominal exam: Present: soft, normal bowel sounds Extremities exam: Present: normal inspection, full ROM Back exam: Present: normal inspection, full ROM Neurological exam: Present: alert, oriented X3, CN II-XII intact Psychiatric exam: Present: normal affect, normal mood Skin exam: Present: warm, dry Course Vital Signs 09/15/22 23:20 Temperature 98.2 F Pulse Rate 114 H Respiratory 18 Rate Blood Pressure 126/81 O2 Sat by Pulse 96 Oximetry EKG Findings - EKG Comments: EKG Findings:: An EKG was obtained and was interpreted by myself showing a rate of 110, MT interval 141, QRS duration of 76 and QTC of 394. This EKG showed a sinus tachycardia without any ST segment elevation or depression noted. Medical Decision Making - Medical Decision Making Was pt. sent in by a medical professional or institution (, PA, EXHIBITIONS CURATOR, urgent care, hospital, or intermediate...) When possible be specific @ -No Did you speak to anyone other than the patient for history (EMS, parent, family, police, friend...)? What history was obtained from this source @ -No Did you review nursing and triage notes (agree or disagree)? Why? @ -I reviewed and agree with nursing and triage notes Were old charts reviewed (outside hosp., previous admission, EMS record, old EKG, old radiological studies, urgent care reports/EKG's, intermediate records)? Report findings @ -No old charts were reviewed Differential Diagnosis (chest pain, altered mental status, abdominal pain women, abdominal pain men, vaginal bleeding, weakness, fever, dyspnea, syncope, headache, dizziness, GI bleed, back pain, seizure, CVA, palpatations, mental health)? @ -Infected port, musculoskeletal strain, chest wall contusion EKG interpreted by me (3pts min.). @ -As above X-rays interpreted by me (1pt min.). @ -Chest x-ray was obtained and was interpreted by myself showing no acute process. CT interpreted by me (1pt min.). @ -None done U/S interpreted by me (1pt. min.). @ -None done What testing was considered but not performed or refused? (CT, X-rays, U/S, labs)? Why? @ -None What meds were considered but not given or refused? Why? @ -None Did you discuss the management of the patient with other professionals ( professionals i.e. , PA, EXHIBITIONS CURATOR, lab, RT, psych nurse, aids social worker, racing mechanic, teacher, chief supply chain officer, case coordinator)? Give summary @ -No Was smoking cessation discussed for >3mins.? @ -No Was critical care preformed (if so, how long)? @ -No Were there social determinants of health that impacted care today? How? (Homelessness, low income, unemployed, alcoholism, drug addiction, transpo rtation, low edu. Level, literacy, decrease access to med. care, prison, rehab)? @ -No Was there de-escalation of care discussed even if they declined (Discuss DNR or withdrawal of care, Hospice)? DNR status @ -No What co-morbidities impacted this encounter? (DM, HTN, Smoking, COPD, CAD, Cancer, CVA, ARF, Chemo, Hep., AIDS, mental health diagnosis, sleep apnea, morbid obesity)? @ -Lung cancer, currently on chemotherapy Was patient admitted / discharged? Hospital course, mention meds given and route, prescriptions, significant lab abnormalities, going to OR and other pertinent info. @ -The patient was seen and evaluated emergency department. Physical exam, the patient was resting in bed without any acute distress. Vital signs admission were stable. The patient did have reproducible pain on palpation of the right anterior chest over the port and over the port length up to her neck. The patient did not have any physical exam findings and was resting in bed comfortably without any fevers and chills. Laboratory workup and imaging was obtained. All workup was negative and the patient did not have any known etiology for her pain. The patient likely had a muscle strain versus contusion over the port. The patient did receive Toradol in the emergency department. On reevaluation, the patient had improvement of her pain. The patient likely had a chest wall muscle strain as a cause of her symptoms. The patient was deemed stable for discharge and was told to follow-up with her primary care physician as well as her oncologist for further workup and evaluation. The patient was agreeable to this and all her questions were answered appropriately. The patient was discharged home in stable condition with her . Undiagnosed new problem with uncertain prognosis? @ -No Drug Therapy requiring intensive monitoring for toxicity (Heparin, Nitro, Insulin, Cardizem)? @ -No Were any procedures done? @ -No Diagnosis/symptom? @ -Right anterior chest wall muscle strain, NOS Acute, or Chronic, or Acute on Chronic? @ -Acute Uncomplicated (without systemic symptoms) or Complicated (systemic symptoms)? @ -Uncomplicated Side effects of treatment? @ -No Exacerbation, Progression, or Severe Exacerbation? @ -No Poses a threat to life or bodily function? How? (Chest pain, USA, ID, pneumonia, PE, COPD, DKA, ARF, appy, cholecystitis, CVA, Diverticulitis, Homicidal, Suicidal, threat to staff... and all critical care pts) @ -No - Lab Data Result diagrams: 09/16/22 00:09 09/16/22 00:09 Lab Results 09/16/22 09/16/22 09/16/22 Range/Units 00:09 00:09 00:09 WBC 7.9 (3.8-10.6) k/uL RBC 3.26 L (3.80-5.40) m/uL Hgb 12.2 (11.4-16.0) gm/dL Hct 34.5 (34.0-46.0) % MCV 105.7 H (80.0-100.0) fL MCH 37.5 H (25.0-35.0) pg MCHC 35.4 (31.0-37.0) g/dL RDW 12.2 (11.5-15.5) % Plt Count 210 (150-450) k/uL MPV 7.3 Neutrophils % 76 % Lymphocytes % 14 % Monocytes % 5 % Eosinophils % 1 % Basophils % 1 % Neutrophils # 6.0 (1.3-7.7) k/uL Lymphocytes # 1.1 (1.0-4.8) k/uL Monocytes # 0.4 (0-1.0) k/uL Eosinophils # 0.1 (0-0.7) k/uL Basophils # 0.0 (0-0.2) k/uL Macrocytosis Slight PT 12.9 H (9.0-12.0) sec INR 1.3 H (<1.2) APTT >200.0 H* (22.0-30.0) sec Sodium 138 (137-145) mmol/L Potassium 2.9 L (3.5-5.1) mmol/L Chloride 108 H (98-107) mmol/L Carbon Dioxide 20 L (22-30) mmol/L Anion Gap 10 mmol/L BUN 11 (7-17) mg/dL Creatinine 0.56 (0.52-1.04) mg/dL Est GFR (CKD-EPI)AfAm >90 (>60 ml/min/1.73 sqM) Est GFR (CKD-EPI)NonAf >90 (>60 ml/min/1.73 sqM) Glucose 104 H (74-99) mg/dL Calcium 7.4 L (8.4-10.2) mg/dL Magnesium 1.9 (1.6-2.3) mg/dL Total Bilirubin 0.4 (0.2-1.3) mg/dL AST 52 H (14-36) U/L ALT 58 H (4-34) U/L Alkaline Phosphatase 118 (38-126) U/L Troponin I (0.000-0.034) ng/mL Total Protein 7.1 (6.3-8.2) g/dL Albumin 3.5 (3.5-5.0) g/dL Lipase 97 (23-300) U/L 09/16/22 09/16/22 Range/Units 00:09 01:24 WBC (3.8-10.6) k/uL RBC (3.80-5.40) m/uL Hgb (11.4-16.0) gm/dL Hct (34.0-46.0) % MCV (80.0-100.0) fL MCH (25.0-35.0) pg MCHC (31.0-37.0) g/dL RDW (11.5-15.5) % Plt Count (150-450) k/uL MPV Neutrophils % % Lymphocytes % % Monocytes % % Eosinophils % % Basophils % % Neutrophils # (1.3-7.7) k/uL Lymphocytes # (1.0-4.8) k/uL Monocytes # (0-1.0) k/uL Eosinophils # (0-0.7) k/uL Basophils # (0-0.2) k/uL Macrocytosis PT (9.0-12.0) sec INR (<1.2) APTT 26.0 (22.0-30.0) sec Sodium (137-145) mmol/L Potassium (3.5-5.1) mmol/L Chloride (98-107) mmol/L Carbon Dioxide (22-30) mmol/L Anion Gap mmol/L BUN (7-17) mg/dL Creatinine (0.52-1.04) mg/dL Est GFR (CKD-EPI)AfAm (>60 ml/min/1.73 sqM) Est GFR (CKD-EPI)NonAf (>60 ml/min/1.73 sqM) Glucose (74-99) mg/dL Calcium (8.4-10.2) mg/dL Magnesium (1.6-2.3) mg/dL Total Bilirubin (0.2-1.3) mg/dL AST (14-36) U/L ALT (4-34) U/L Alkaline Phosphatase (38-126) U/L Troponin I <0.012 (0.000-0.034) ng/mL Total Protein (6.3-8.2) g/dL Albumin (3.5-5.0) g/dL Lipase (23-300) U/L Disposition Clinical Impression: Chest wall muscle strain Disposition: HOME SELF-CARE Condition: Stable Instructions (If sedation given, give patient instructions): Chest Pain (ED) Is patient prescribed a controlled substance at d/c from ED?: No Referrals: Beata Álvarez MD [Primary Care Provider] - 1-2 days Time of Disposition: 03:15
[2022-09-16 03:19] LABS: ALT 58 U/L (4-34); AST 52 U/L (14-36); African American GFR (CKD) >90 (>60 ml/min/1.73 sqM); Albumin 3.5 g/dL (3.5-5.0); Alkaline Phosphatase 118 U/L (38-126); Anion Gap 10 mmol/L; Blood Urea Nitrogen 11 mg/dL (7-17); Calcium 7.4 mg/dL (8.4-10.2); Carbon Dioxide 20 mmol/L (22-30); Chloride 108 mmol/L (98-107); Glucose 104 mg/dL (74-99); Lipase 97 U/L (23-300); Magnesium 1.9 mg/dL (1.6-2.3); Non-African American GFR(CKD) >90 (>60 ml/min/1.73 sqM); Potassium 2.9 mmol/L (3.5-5.1); Sodium 138 mmol/L (137-145); Total Bilirubin 0.4 mg/dL (0.2-1.3); Total Protein 7.1 g/dL (6.3-8.2)
[2022-09-16] MEDS ORDERED: POTASSIUM CHLORIDE ER 20 MEQ TAB.ER PO STA (03:21)
== END 2022-09-16 04:00 | disposition home or self-care (01) ==
LOC: EC 23:18
DX: S29.011A Strain of muscle and tendon of front wall of thorax, initial encounter (principal); F41.9 Anxiety disorder, unspecified; Z87.891 Personal history of nicotine dependence; Z91.018 Allergy to other foods; Z88.6 Allergy status to analgesic agent; Z88.8 Allergy status to other drugs, medicaments and biological substances; X58.XXXA Exposure to other specified factors, initial encounter
CPT/HCPCS: 36415; 93005; 80053; 83690; 83735; 84484; 85025; 85610; 85730; 71046; 99285; 96374; 96375; J1642; J1885

== ENCOUNTER → 2023-04-26 | Outpatient (CLI) | payer MEDICARE, OTHER ==
--- NOTE | 2023-04-26 13:38 | US ---
EXAMINATION TYPE: US venous doppler duplex UE RT DATE OF EXAM: 04/26/2023 COMPARISON: NONE CLINICAL INDICATION: Female, 52 years old with history of M79.621 PAIN IN RIGHT UPPER ARM to back of the neck; Patient has right sided port, ongoing cancer treatment, last access this morning. SIDE PERFORMED: right Right Arm: Negative for DVT Left Arm: not assessed ? Dilated port at access point. IMPRESSION: No evidence of deep venous thrombosis.
== END | disposition home or self-care (01) ==
LOC: RADUSWWP 12:46
PROVIDERS: ATTEND Internal Medicine Hematology & Oncology
DX: M79.621 Pain in right upper arm (principal); R22.31 Localized swelling, mass and lump, right upper limb; C34.12 Malignant neoplasm of upper lobe, left bronchus or lung; I10 Essential (primary) hypertension; F41.9 Anxiety disorder, unspecified; Z71.3 Dietary counseling and surveillance

== ENCOUNTER → 2023-06-21 | Outpatient (CLI) | payer MEDICARE, OTHER ==
--- NOTE | 2023-06-21 13:20 | US ---
EXAMINATION TYPE: US venous doppler duplex UE RT DATE OF EXAM: 06/21/2023 COMPARISON: UE Venous Right 04/26/2023 CLINICAL INDICATION: Female, 52 years old with history of M79.621 PAIN IN UPPER ARM RIGHT; Pain and s welling in right arm since port access in August. SIDE PERFORMED: Right TECHNIQUE: Grayscale, color doppler, spectral doppler imaging performed of the deep veins of the upper extremiti es. Right Arm: Negative for DVT Left Arm: NA FINDINGS AND IMPRESSION: 1. Injection port tip appears to be located at the level of the right internal jugular vein. Recommen d radiograph of the neck and chest to assess for any abnormal looping or fracturing of the catheter. 2. No evidence for DVT within the right upper extremity. 3. Stable prominent anechoic appearance to the region of the injection port. Probably normal for this type of port. Correlate for any palpable abnormality at the port site. Also, attention on follow-up radiograph.
== END | disposition home or self-care (01) ==
LOC: RADUSWWP 12:09
PROVIDERS: ATTEND Internal Medicine Hematology & Oncology
DX: M79.621 Pain in right upper arm (principal)